=== PATIENT | female | born 1970 | race African-American/Black ===

== ENCOUNTER 2016-06-20 10:15 | Outpatient (CLI) | payer MEDICARE, MEDICAID ==
[2016-06-20 11:03] LABS: #Basophils 0.1 thou/uL (0.0-0.2); #Eosinphils 0.1 thou/uL (0.0-0.7); #Lymphocytes 2.7 thou/uL (1.20-3.40); #Monocytes 0.4 thou/uL (0.11-0.59); #Neutrophils 3.4 thou/uL (1.40-6.50); %Basophils 1.9 % (0.0-1.0); %Eosinophils 0.8 % (0.0-10.0); %Lymphocytes 40.6 % (21.0-51.0); %Monocytes 5.8 % (0.0-10.0); Hemoglobin 14.7 g/dL (12.0-16.0); Mean Corpuscular HGB CONC 33.1 g/dL (32.0-36.0); Mean Corpuscular Hemoglobin 30.8 pg (27.0-31.0); Mean Corpuscular Volume 93.2 fl (81.0-99.0); Mean Platelet Volume 11.7 fL (7.4-10.4); Platelet Count 242 thou/uL (130-400); RBC Distribution Width 11.6 % (11.5-14.5); Red Blood Cell (RBC) Count 4.76 mill/uL (4.20-5.40); White Blood Cell (WBC) Count 6.7 thou/uL (4.8-10.8)
[2016-06-20 11:15] LABS: Hemoglobin A1c 14.1 % (4.0-6.0)
[2016-06-20 11:19] LABS: INR-International Normal Ratio 0.9; Prothrombin Time 12.6 SEC (12.0-14.7)
[2016-06-20 11:34] LABS: ALT (SGPT) 15 U/L (0-55); AST (SGOT) 14 U/L (5-34); Albumin 4.2 g/dL (3.5-5.0); Alkaline Phosphatase 68 U/L (40-150); Anion Gap 15 mmol/L (10-20); BUN (Urea Nitrogen) 8 mg/dL (7.0-18.7); Bilirubin, Total 0.6 mg/dL (0.2-1.2); Calc. Creatinine Clearance 0 mL/min (70-130); Calcium 9.3 mg/dL (7.8-10.44); Carbon Dioxide 20 mmol/L (22-29); Chloride 100 mmol/L (98-107); Estimated GFR-MDRD 61; Globulin 3.2 g/dL (2.4-3.5); Glucose 540 mg/dL (70-105); Potassium 3.8 mmol/L (3.5-5.1); Protein, Total 7.4 g/dL (6.0-8.3); Sodium 131 mmol/L (136-145)
== END 2016-06-20 10:16 | disposition home or self-care (01) ==
LOC: MADLABBHPM 10:15
PROVIDERS: ATTEND Internal Medicine Gastroenterology
DX: E11.65 Type 2 diabetes mellitus with hyperglycemia (principal); K83.0 Cholangitis
CPT/HCPCS: 36415; 80053; 83036; 85025; 85610

== ENCOUNTER 2016-07-11 00:13 | Emergency (ER) | payer MEDICARE, MEDICAID ==
[2016-07-11] MEDS ORDERED: Sodium Chloride Irrig Solution 250 ML BOT ONE (07:50)
== END 2016-07-11 01:17 | disposition home or self-care (01) ==
LOC: MADERS 00:13
DX: T81.30XA Disruption of wound, unspecified, initial encounter (principal); E11.9 Type 2 diabetes mellitus without complications; I10 Essential (primary) hypertension; F17.210 Nicotine dependence, cigarettes, uncomplicated; Z79.899 Other long term (current) drug therapy
CPT/HCPCS: 99282

== ENCOUNTER 2016-08-29 10:04 | Outpatient (CLI) | payer MEDICARE, OTHER ==
[2016-08-29 10:59] LABS: ALT (SGPT) 17 U/L (8-55); AST (SGOT) 19 U/L (5-34); Alkaline Phosphatase 62 U/L (40-150); Anion Gap 11 mmol/L (10-20); BUN (Urea Nitrogen) 6 mg/dL (7.0-18.7); Bilirubin, Total Less than 0.3 mg/dL (0.2-1.2); Calc. Creatinine Clearance 0 mL/min (70-130); Calcium 9.1 mg/dL (7.8-10.44); Carbon Dioxide 26 mmol/L (22-29); Chloride 105 mmol/L (98-107); Estimated GFR-MDRD Greater than 90; Globulin 3.3 g/dL (2.4-3.5); Glucose 188 mg/dL (70-105); Potassium 3.3 mmol/L (3.5-5.1); Protein, Total 7.3 g/dL (6.0-8.3); Sodium 139 mmol/L (136-145)
[2016-08-29 17:52] LABS: Creatinine, Urine 273.35 mg/dL (47-110); Microalbumin Urine 33.5 mg/dL (0.5-50.0); Microalbumin/Creat Ratio 122.6 mg/g (Less than 30)
== END 2016-08-29 10:05 | disposition home or self-care (01) ==
LOC: MADLABBHPM 10:04
PROVIDERS: ATTEND Family Medicine
DX: E11.65 Type 2 diabetes mellitus with hyperglycemia (principal)
CPT/HCPCS: 36415; 80053; 82043; 83036

== ENCOUNTER 2017-03-05 14:58 | Emergency (ER) | payer MEDICARE, OTHER | END 2017-03-05 15:39 | disposition home or self-care (01) | LOC: MADERS 14:58 | DX: J20.9 Acute bronchitis, unspecified (principal); F17.210 Nicotine dependence, cigarettes, uncomplicated; F32.9 Major depressive disorder, single episode, unspecified; I10 Essential (primary) hypertension; E11.9 Type 2 diabetes mellitus without complications; Z79.899 Other long term (current) drug therapy; Z79.891 Long term (current) use of opiate analgesic | CPT/HCPCS: 99283 ==

== ENCOUNTER 2017-04-11 11:13 | Emergency (ER) | payer MEDICARE, OTHER | END 2017-04-11 13:56 | disposition home or self-care (01) | LOC: MADERS 11:13 | DX: J06.9 Acute upper respiratory infection, unspecified (principal); E11.9 Type 2 diabetes mellitus without complications; F32.9 Major depressive disorder, single episode, unspecified; F17.210 Nicotine dependence, cigarettes, uncomplicated; I10 Essential (primary) hypertension; Z79.4 Long term (current) use of insulin; Z79.899 Other long term (current) drug therapy | CPT/HCPCS: 87081; 87430; 99283 ==

== ENCOUNTER 2017-07-20 22:53 | Emergency (ER) | payer MEDICARE, MEDICAID | END 2017-07-20 23:24 | disposition home or self-care (01) | LOC: MADERS 22:53 | DX: M62.830 Muscle spasm of back (principal); E11.9 Type 2 diabetes mellitus without complications; I10 Essential (primary) hypertension; F32.9 Major depressive disorder, single episode, unspecified; F17.210 Nicotine dependence, cigarettes, uncomplicated; Z79.899 Other long term (current) drug therapy; Z79.4 Long term (current) use of insulin | CPT/HCPCS: 99283 ==

== ENCOUNTER → 2017-08-15 | Emergency (ER) | payer MEDICARE, MEDICAID | LOC: MADERS 19:45 | DX: E11.65 Type 2 diabetes mellitus with hyperglycemia (principal); I10 Essential (primary) hypertension; G89.29 Other chronic pain; M54.9 Dorsalgia, unspecified; F17.210 Nicotine dependence, cigarettes, uncomplicated; F32.9 Major depressive disorder, single episode, unspecified; Z79.4 Long term (current) use of insulin; Z79.899 Other long term (current) drug therapy | CPT/HCPCS: 36416; 99283 ==

== ENCOUNTER 2017-08-25 16:20 | Emergency (ER) | payer MEDICARE, OTHER ==
[2017-08-25] MEDS ORDERED: cefTRIAXone\\ROCEPHIN 1 GM VIAL ONE (17:26)
[2017-08-25] MEDS ORDERED: Benzonatate 100 MG CAP ONE (17:26)
[2017-08-25] MEDS ORDERED: Lidocaine 1% 20 ML MDV ONE (17:26)
== END 2017-08-25 18:00 | disposition home or self-care (01) ==
LOC: MADERS 16:20
DX: J20.9 Acute bronchitis, unspecified (principal); J01.90 Acute sinusitis, unspecified; E11.9 Type 2 diabetes mellitus without complications; I10 Essential (primary) hypertension; F32.9 Major depressive disorder, single episode, unspecified; F17.210 Nicotine dependence, cigarettes, uncomplicated; Z79.4 Long term (current) use of insulin; Z79.899 Other long term (current) drug therapy
CPT/HCPCS: 96372; J0696; J2001

== ENCOUNTER 2017-09-22 13:48 | Emergency (ER) | payer MEDICARE, MEDICAID ==
[2017-09-22] MEDS ORDERED: AMOXicillin 250 MG CAP ONE (14:17)
[2017-09-22] MEDS ORDERED: Naproxen 500 MG TAB ONE (14:17)
[2017-09-22] MEDS ORDERED: Benzonatate 100 MG CAP ONE (14:17)
== END 2017-09-22 14:30 | disposition home or self-care (01) ==
LOC: MADERS 13:48
DX: J02.9 Acute pharyngitis, unspecified (principal); J20.9 Acute bronchitis, unspecified; E11.9 Type 2 diabetes mellitus without complications; I10 Essential (primary) hypertension; F32.9 Major depressive disorder, single episode, unspecified; F17.210 Nicotine dependence, cigarettes, uncomplicated; Z79.4 Long term (current) use of insulin; Z79.899 Other long term (current) drug therapy
CPT/HCPCS: 99283

== ENCOUNTER 2018-05-04 11:42 | Emergency (ER) | payer MEDICARE, OTHER ==
[2018-05-04] MEDS ORDERED: Morphine 4 MG/ML VIAL ONE (12:27)
[2018-05-04 13:12] LABS: #Basophils 0.1 thou/uL (0.0-0.2); #Eosinphils 0.1 thou/uL (0.0-0.7); #Lymphocytes 2.3 thou/uL (1.20-3.40); #Monocytes 0.4 thou/uL (0.11-0.59); #Neutrophils 5.3 thou/uL (1.40-6.50); %Basophils 0.7 % (0.0-1.0); %Eosinophils 1.1 % (0.0-10.0); %Lymphocytes 27.9 % (21.0-51.0); %Monocytes 4.5 % (0.0-10.0); %Neutrophils 65.9 % (42.0-75.0); Hemoglobin 11.4 g/dL (12.0-16.0); Mean Corpuscular HGB CONC 32.1 g/dL (32.0-36.0); Mean Corpuscular Hemoglobin 30.8 pg (27.0-31.0); Mean Corpuscular Volume 96.1 fL (78.0-98.0); Mean Platelet Volume 11.1 fL (7.4-10.4); Platelet Count 234 thou/uL (130-400); RBC Distribution Width 13.1 % (11.5-14.5); Red Blood Cell (RBC) Count 3.71 mill/uL (4.20-5.40); White Blood Cell (WBC) Count 8.1 thou/uL (4.8-10.8)
[2018-05-04 13:29] LABS: Anion Gap 12 mmol/L (10-20); BUN (Urea Nitrogen) 9 mg/dL (7.0-18.7); Calc. Creatinine Clearance 0 mL/min (70-130); Calcium 9.4 mg/dL (7.8-10.44); Carbon Dioxide 26 mmol/L (22-29); Chloride 105 mmol/L (98-107); Estimated GFR-MDRD 56; Glucose 438 mg/dL (70-105); Potassium 5.2 mmol/L (3.5-5.1); Sodium 138 mmol/L (136-145)
--- NOTE | 2018-05-04 13:42 | RAD ---
AP PELVIS: Date: 05/04/18 HISTORY: Pelvic pain. FINDINGS: Pelvic ring is intact. No evidence of fracture. 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 S I joints are symmetric in appearance. IMPRESSION: No acute changes. POS: [facility]
--- NOTE | 2018-05-04 13:56 | RAD ---
RIGHT FEMUR 2 VIEWS: Date: 05/04/18 PROVIDED CLINICAL HISTORY: Injury. FINDINGS: There is no evidence for fracture or other acute osseous abnormality. If there is persistent clinical concern, conservative management and follow-up imaging are advised. IMPRESSION: As above. POS: [facility]
--- NOTE | 2018-05-04 13:58 | RAD ---
RIGHT TIBIA AND FIBULA 2 VIEWS: Date: 05/04/18 HISTORY: Tibia/fibula injury. FINDINGS: There are no signs of fracture or dislocation. Arthritic changes of the knee are present. IMPRESSION: No evidence of fracture. POS: [facility]
--- NOTE | 2018-05-04 14:04 | RAD ---
RIGHT HUMERUS 2 VIEWS: Date: 05/04/18 HISTORY: Humerus injury. FINDINGS: There are some arthritic changes of the elbow and shoulder. There are no signs of fracture or disloca tion. IMPRESSION: No evidence of fracture. POS: [facility]
[2018-05-04 15:30] LABS: #Basophils 0.1 thou/uL (0.0-0.2); #Eosinphils 0.1 thou/uL (0.0-0.7); #Lymphocytes 3.1 thou/uL (1.20-3.40); #Monocytes 0.4 thou/uL (0.11-0.59); #Neutrophils 5.7 thou/uL (1.40-6.50); %Basophils 0.7 % (0.0-1.0); %Eosinophils 0.9 % (0.0-10.0); %Lymphocytes 33.1 % (21.0-51.0); %Monocytes 4.6 % (0.0-10.0); %Neutrophils 60.8 % (42.0-75.0); Hemoglobin 11.6 g/dL (12.0-16.0); Mean Corpuscular HGB CONC 31.7 g/dL (32.0-36.0); Mean Corpuscular Hemoglobin 30.4 pg (27.0-31.0); Mean Corpuscular Volume 95.9 fL (78.0-98.0); Mean Platelet Volume 11.7 fL (7.4-10.4); Platelet Count 225 thou/uL (130-400); RBC Distribution Width 13.3 % (11.5-14.5); Red Blood Cell (RBC) Count 3.81 mill/uL (4.20-5.40); White Blood Cell (WBC) Count 9.4 thou/uL (4.8-10.8)
== END 2018-05-04 15:45 | disposition home or self-care (01) ==
LOC: MADERS 11:42
DX: S70.11XA Contusion of right thigh, initial encounter (principal); E11.9 Type 2 diabetes mellitus without complications; I10 Essential (primary) hypertension; F32.9 Major depressive disorder, single episode, unspecified; F17.210 Nicotine dependence, cigarettes, uncomplicated; Z79.4 Long term (current) use of insulin; Z79.899 Other long term (current) drug therapy; Z79.51 Long term (current) use of inhaled steroids; V03.99XA Pedestrian with other conveyance injured in collision with car, pick-up truck or van, unspecified whether traffic or nontraffic accident, initial encounter
CPT/HCPCS: 36415; 72170; 80048; 85025; 86850; 86900; 86901; 96372; J2270

== ENCOUNTER 2018-12-22 11:17 | Emergency (ER) | payer MEDICARE, MEDICAID ==
[2018-12-22] MEDS ORDERED: Ibuprofen 800 MG TAB ONE (12:10)
[2018-12-22] MEDS ORDERED: Cephalexin 500 MG CAP ONE (12:10)
== END 2018-12-22 12:15 | disposition home or self-care (01) ==
LOC: MADERS 11:17
DX: K04.7 Periapical abscess without sinus (principal); L02.425 Furuncle of right lower limb; K02.9 Dental caries, unspecified; E11.9 Type 2 diabetes mellitus without complications; I10 Essential (primary) hypertension; F32.9 Major depressive disorder, single episode, unspecified; F17.210 Nicotine dependence, cigarettes, uncomplicated; Z79.4 Long term (current) use of insulin
CPT/HCPCS: 99283

== ENCOUNTER 2019-03-09 11:50 | Emergency (ER) | payer MEDICARE, MEDICAID | END 2019-03-09 13:15 | disposition left against medical advice (07) | LOC: MADERS 11:50 | DX: Z53.21 Procedure and treatment not carried out due to patient leaving prior to being seen by health care provider (principal) ==

== ENCOUNTER 2020-01-20 12:53 | Emergency (ER) | payer MEDICARE, MEDICAID ==
[2020-01-20] MEDS ORDERED: predniSONE 20 MG TAB ONE (13:45)
[2020-01-20] MEDS ORDERED: Acetaminophen 500 MG TAB ONE (13:46)
== END 2020-01-20 13:50 | disposition home or self-care (01) ==
LOC: MADERS 12:53
DX: M54.32 Sciatica, left side (principal); E11.9 Type 2 diabetes mellitus without complications; F32.9 Major depressive disorder, single episode, unspecified; F17.210 Nicotine dependence, cigarettes, uncomplicated; I10 Essential (primary) hypertension; Z79.4 Long term (current) use of insulin
CPT/HCPCS: 99283; J7512

== ENCOUNTER 2020-12-13 13:27 | Outpatient (CLI) | payer MEDICARE, MEDICAID ==
[2020-12-13 14:19] LABS: ALT (SGPT) 10 U/L (8-55); AST (SGOT) 7 U/L (5-34); Albumin 3.7 g/dL (3.5-5.0); Alkaline Phosphatase 85 U/L (40-110); Anion Gap 14 mmol/L (10-20); BUN (Urea Nitrogen) 14 mg/dL (9.8-20.1); Bilirubin, Total 0.3 mg/dL (0.2-1.2); Calc. Creatinine Clearance 0 mL/min (70-130); Calcium 9.7 mg/dL (7.8-10.44); Carbon Dioxide 22 mmol/L (22-29); Cardiac Risk 4.2 (Less than 4.5); Chloride 101 mmol/L (98-107); Cholesterol 220 mg/dl (< 200 Desired); Globulin 3.4 g/dL (2.4-3.5); HDL Cholesterol 52 mg/dL (>60 Neg Risk); LDL Cholesterol, Calculated 144 mg/dL; Potassium 3.9 mmol/L (3.5-5.1); Protein, Total 7.1 g/dL (6.0-8.3); Sodium 133 mmol/L (136-145); Triglycerides 120 mg/dL (Less than 150)
[2020-12-13 15:00] LABS: #Basophils 0.1 thou/uL (0.0-0.2); #Eosinphils 0.1 thou/uL (0.0-0.7); #Lymphocytes 3.2 thou/uL (1.20-3.40); #Monocytes 0.3 thou/uL (0.11-0.59); #Neutrophils 3.6 thou/uL (1.40-6.50); %Basophils 1.4 % (0.0-1.0); %Eosinophils 0.8 % (0.0-10.0); %Lymphocytes 44.2 % (21.0-51.0); %Monocytes 4.4 % (0.0-10.0); %Neutrophils 49.3 % (42.0-75.0); Giant Platelets SLIGHT; Hemoglobin 13.5 g/dL (12.0-16.0); Large Platelets SLIGHT; MDiff Complete? YES; Mean Corpuscular HGB CONC 30.7 g/dL (32.0-36.0); Mean Corpuscular Hemoglobin 29.2 pg (27.0-31.0); Mean Corpuscular Volume 95.2 fL (78.0-98.0); Platelet Count 231 thou/uL (130-400); Platelet Morphology Comment Appears Adequate; RBC Distribution Width 12.6 % (11.5-14.5); Red Blood Cell (RBC) Count 4.61 mill/uL (4.20-5.40); White Blood Cell (WBC) Count 7.2 thou/uL (4.8-10.8)
[2020-12-13 15:07] LABS: Glucose 598 mg/dL (70-105)
== END 2020-12-13 13:28 | disposition home or self-care (01) ==
LOC: MADLAB 13:27
PROVIDERS: ATTEND Family Medicine
DX: M25.552 Pain in left hip (principal); M54.30 Sciatica, unspecified side; E11.65 Type 2 diabetes mellitus with hyperglycemia; R63.4 Abnormal weight loss; M47.816 Spondylosis without myelopathy or radiculopathy, lumbar region; Z87.891 Personal history of nicotine dependence
CPT/HCPCS: 36415; 71046; 72100; 80053; 80061; 84443; 85025

== ENCOUNTER 2021-03-08 12:39 | Emergency (ER) | payer MEDICARE, MEDICAID | END 2021-03-08 14:00 | disposition home or self-care (01) | LOC: MADERS 12:39 | DX: S33.8XXA Sprain of other parts of lumbar spine and pelvis, initial encounter (principal); E11.9 Type 2 diabetes mellitus without complications; I10 Essential (primary) hypertension; F17.210 Nicotine dependence, cigarettes, uncomplicated; Z79.4 Long term (current) use of insulin; Z79.899 Other long term (current) drug therapy; W10.9XXA Fall (on) (from) unspecified stairs and steps, initial encounter | CPT/HCPCS: 72220 ==

== ENCOUNTER 2021-08-24 16:08 | Outpatient (CLI) | payer MEDICARE, MEDICAID ==
[2021-08-24 17:00] LABS: ALT (SGPT) 10 U/L (8-55); AST (SGOT) 12 U/L (5-34); Albumin 3.9 g/dL (3.5-5.0); Alkaline Phosphatase 83 U/L (40-110); Anion Gap 17 mmol/L (10-20); BUN (Urea Nitrogen) 10 mg/dL (9.8-20.1); Bilirubin, Total 0.4 mg/dL (0.2-1.2); Calc. Creatinine Clearance 0 mL/min (70-130); Calcium 9.3 mg/dL (7.8-10.44); Carbon Dioxide 22 mmol/L (22-29); Cardiac Risk 4.4 (Less than 4.5); Chloride 103 mmol/L (98-107); Cholesterol 192 mg/dl (< 200 Desired); Globulin 3.9 g/dL (2.4-3.5); Glucose 233 mg/dL (70-105); HDL Cholesterol 44 mg/dL (>60 Neg Risk); LDL Cholesterol, Calculated 115 mg/dL; Potassium 3.6 mmol/L (3.5-5.1); Protein, Total 7.8 g/dL (6.0-8.3); Sodium 138 mmol/L (136-145); Triglycerides 164 mg/dL (Less than 150)
[2021-08-24 19:48] LABS: #Basophils 0.1 thou/uL (0.0-0.2); #Lymphocytes 3.5 thou/uL (1.20-3.40); #Monocytes 0.5 thou/uL (0.11-0.59); #Neutrophils 7.5 thou/uL (1.40-6.50); %Basophils 0.9 % (0.0-1.0); %Eosinophils 0.3 % (0.0-10.0); %Lymphocytes 30.6 % (21.0-51.0); %Monocytes 3.9 % (0.0-10.0); %Neutrophils 64.3 % (42.0-75.0); Hemoglobin 12.8 g/dL (12.0-16.0); Mean Corpuscular HGB CONC 30.7 g/dL (32.0-36.0); Mean Corpuscular Hemoglobin 28.7 pg (27.0-31.0); Mean Corpuscular Volume 93.5 fL (78.0-98.0); Platelet Count 215 thou/uL (130-400); Platelet Morphology Comment Appears Adequate; RBC Morphology Normal; Red Blood Cell (RBC) Count 4.45 mill/uL (4.20-5.40); White Blood Cell (WBC) Count 11.6 thou/uL (4.8-10.8)
[2021-08-24 20:00] LABS: Thyroid Stimulating Hormone 0.6419 uIU/mL (0.35-4.94)
[2021-08-24 22:33] LABS: Free T4 (Free Thyroxine) 0.79 ng/dL (0.70-1.48)
[2021-08-25 14:39] LABS: Thyroid Peroxidase IgG Ab Less than 4.0 IU/mL (<25 Normal)
== END 2021-08-24 16:09 | disposition home or self-care (01) ==
LOC: MADRAD 16:08
PROVIDERS: ATTEND Family Medicine
DX: J44.9 Chronic obstructive pulmonary disease, unspecified (principal); E11.65 Type 2 diabetes mellitus with hyperglycemia; I10 Essential (primary) hypertension; E04.9 Nontoxic goiter, unspecified
CPT/HCPCS: 36415; 71046; 80053; 80061; 84439; 84443; 84481; 85025; 86376

== ENCOUNTER 2021-09-04 16:01 | Emergency (ER) | payer MEDICARE, MEDICAID | END 2021-09-04 17:44 | disposition home or self-care (01) | LOC: MADERS 16:01 | DX: J32.9 Chronic sinusitis, unspecified (principal); J44.9 Chronic obstructive pulmonary disease, unspecified; F17.210 Nicotine dependence, cigarettes, uncomplicated; E11.9 Type 2 diabetes mellitus without complications | CPT/HCPCS: 99282 ==

== ENCOUNTER 2021-11-19 16:17 | Emergency (ER) | payer OTHER ==
[2021-11-19 17:36] LABS: Hemoglobin 11.7 g/dL (12.0-16.0); Mean Corpuscular HGB CONC 31.1 g/dL (32.0-36.0); Mean Corpuscular Hemoglobin 29.4 pg (27.0-31.0); Mean Corpuscular Volume 94.5 fL (78.0-98.0); Mean Platelet Volume 13.9 fL (7.4-10.4); Platelet Count 207 thou/uL (130-400); RBC Distribution Width 13.1 % (11.5-14.5); Red Blood Cell (RBC) Count 3.97 mill/uL (4.20-5.40); White Blood Cell (WBC) Count 7.4 thou/uL (4.8-10.8)
[2021-11-19 17:51] LABS: ALT (SGPT) 9 U/L (8-55); AST (SGOT) 8 U/L (5-34); Albumin 3.9 g/dL (3.5-5.0); Alkaline Phosphatase 91 U/L (40-110); Anion Gap 14 mmol/L (10-20); BUN (Urea Nitrogen) 7 mg/dL (9.8-20.1); Bilirubin, Total 0.5 mg/dL (0.2-1.2); Calc. Creatinine Clearance 0 mL/min (70-130); Calcium 8.9 mg/dL (7.8-10.44); Carbon Dioxide 24 mmol/L (22-29); Chloride 102 mmol/L (98-107); Estimated GFR 42; Globulin 3.1 g/dL (2.4-3.5); Glucose 487 mg/dL (70-105); Potassium 3.5 mmol/L (3.5-5.1); Sodium 136 mmol/L (136-145)
[2021-11-19 18:00] LABS: #Basophils 0.1 thou/uL (0.0-0.2); #Eosinphils 0.1 thou/uL (0.0-0.7); #Lymphocytes 3.2 thou/uL (1.20-3.40); #Monocytes 0.4 thou/uL (0.11-0.59); #Neutrophils 3.7 thou/uL (1.40-6.50); %Basophils 1.1 % (0.0-1.0); %Eosinophils 1.1 % (0.0-10.0); %Lymphocytes 42.7 % (21.0-51.0); %Monocytes 5.1 % (0.0-10.0); %Neutrophils 50.1 % (42.0-75.0); Platelet Morphology Comment Appears Adequate; RBC Morphology Normal
[2021-11-19 18:05] LABS: MDiff Complete? YES
== END 2021-11-19 18:09 | disposition home or self-care (01) ==
LOC: MADERS 16:17
DX: R53.1 Weakness (principal); I12.9 Hypertensive chronic kidney disease with stage 1 through stage 4 chronic kidney disease, or unspecified chronic kidney disease; E11.22 Type 2 diabetes mellitus with diabetic chronic kidney disease; N18.9 Chronic kidney disease, unspecified; E11.65 Type 2 diabetes mellitus with hyperglycemia; R29.703 NIHSS score 3; J42 Unspecified chronic bronchitis; F17.210 Nicotine dependence, cigarettes, uncomplicated; Z79.4 Long term (current) use of insulin; Z79.899 Other long term (current) drug therapy
CPT/HCPCS: 70450; 80053; 85025

== ENCOUNTER 2022-04-18 14:17 | Emergency (ER) | payer OTHER, MEDICAID ==
[2022-04-18] MEDS ORDERED: Dexamethasone 4 MG TAB ONE (15:32)
[2022-04-18] MEDS ORDERED: Ibuprofen 600 MG TAB ONE (15:32)
== END 2022-04-18 15:37 | disposition home or self-care (01) ==
LOC: MADERS 14:17
DX: S39.012A Strain of muscle, fascia and tendon of lower back, initial encounter (principal); I10 Essential (primary) hypertension; E11.9 Type 2 diabetes mellitus without complications; F17.210 Nicotine dependence, cigarettes, uncomplicated; J42 Unspecified chronic bronchitis; V43.52XA Car driver injured in collision with other type car in traffic accident, initial encounter; Y92.481 Parking lot as the place of occurrence of the external cause; Z79.4 Long term (current) use of insulin; Z79.899 Other long term (current) drug therapy
CPT/HCPCS: 99284; J8540

== ENCOUNTER 2023-06-17 14:08 | Emergency (ER) | payer OTHER ==
[2023-06-17] MEDS ORDERED: Orphenadrine Citrate 60 MG/2 ML VIAL ONE (14:48)
== END 2023-06-17 15:07 | disposition home or self-care (01) ==
LOC: MADERS 14:08
DX: S46.811A Strain of other muscles, fascia and tendons at shoulder and upper arm level, right arm, initial encounter (principal); E11.9 Type 2 diabetes mellitus without complications; I10 Essential (primary) hypertension; F17.210 Nicotine dependence, cigarettes, uncomplicated; Z79.899 Other long term (current) drug therapy; Z79.4 Long term (current) use of insulin; X50.0XXA Overexertion from strenuous movement or load, initial encounter
CPT/HCPCS: 96372; 99283; J2360

== ENCOUNTER 2023-09-26 12:14 | Emergency (ER) | payer OTHER ==
[2023-09-26] MEDS ORDERED: Albuterol 200 PUFF (6.7GM INHALER) ONE (12:49)
[2023-09-26] MEDS ORDERED: predniSONE 20 MG TAB ONE (12:49)
[2023-09-27 13:32] LABS: SARS-CoV-2 N1 Negative; SARS-CoV-2 N2 Negative; SARS-CoV-2 RNAse P1 Positive; SARS-CoV-2 RNAse P2 Positive
== END 2023-09-26 13:27 | disposition home or self-care (01) ==
LOC: MADERS 12:14
DX: J44.1 Chronic obstructive pulmonary disease with (acute) exacerbation (principal); E11.9 Type 2 diabetes mellitus without complications; I10 Essential (primary) hypertension; F17.210 Nicotine dependence, cigarettes, uncomplicated; Z79.4 Long term (current) use of insulin; Z79.899 Other long term (current) drug therapy
CPT/HCPCS: 71046; 87081; 87430; 87635; 87804; J7512

== ENCOUNTER 2024-03-25 15:18 | Emergency (ER) | payer OTHER ==
[2024-03-25] MEDS ORDERED: Ipratropium/Albuterol 3 ML NEB ONE (16:09)
[2024-03-25] MEDS ORDERED: Benzonatate 100 MG CAP ONE (16:10)
== END 2024-03-25 16:45 | disposition home or self-care (01) ==
LOC: MADERS 15:18
DX: J44.1 Chronic obstructive pulmonary disease with (acute) exacerbation (principal); E11.9 Type 2 diabetes mellitus without complications; I10 Essential (primary) hypertension; F17.210 Nicotine dependence, cigarettes, uncomplicated
CPT/HCPCS: 71046; J7620

== ENCOUNTER 2024-12-25 10:50 | Emergency (ER) | payer OTHER, MEDICAID | END 2024-12-25 12:05 | disposition home or self-care (01) | LOC: MADERS 10:50 | DX: J06.9 Acute upper respiratory infection, unspecified (principal); I10 Essential (primary) hypertension; E11.9 Type 2 diabetes mellitus without complications; J44.9 Chronic obstructive pulmonary disease, unspecified; F17.210 Nicotine dependence, cigarettes, uncomplicated; Z79.4 Long term (current) use of insulin; Z79.899 Other long term (current) drug therapy | CPT/HCPCS: 71046; 87428; Q0162 ==